=== PATIENT | male | born 1935 | race Caucasian/White ===

== ENCOUNTER 2018-02-27 19:09 | Inpatient (IN) | payer MEDICARE, OTHER ==
[~2018-02-27] VITALS: Ht 172.7 cm; Wt 57.4 kg
[~2018-02-27 19:09] MED LIST: ACET-2605 PO; ALLO100T56 PO; ASPI81TA31 PO; CALC-34 PO; DILT240C2 PO; FOLI1TAB16 PO; LUBI24CA5 PO; METO-357 PO; RIVA20TA PO; SAXA1TBM PO; SIMV20TA6 PO; TAMS-3 PO
--- NOTE | 2018-02-27 20:05 | NUR ---
PT IN BED. PT'S FAMILY MEMBERS AT BEDSIDE. PT IS AAOX4. PT PRESENTED TO ED WITH C/O ABDOMINAL PAIN. HOWEVER, UPON INITAL ASSESSMENT PT WAS TACHYCARDIC. WAS MADE AWARE.
[2018-02-27] MEDS ORDERED: MORPHINE SULFATE 2 MG/1 ML DISP.SYRIN IV ONE (20:15)
[2018-02-27] MEDS ORDERED: IV NORMAL SALINE 1000 ML BAG IV ONE (20:15)
[2018-02-27] MEDS ORDERED: ONDANSETRON 4 MG/2 ML VIAL IV ONE (20:15)
[2018-02-27] MEDS ORDERED: DILTIAZEM HCL 25 MG IV IV ONE ×2 (20:15→20:45)
[2018-02-27 20:34] LABS: BASOPHILS # (AUTO) 0.1 K/uL (0.0-8.0); BASOPHILS % (AUTO) 0.6 % (0.0-2.0); EOSINOPHILS % (AUTO) 0.2 % (0.0-7.0); HEMOGLOBIN 12.1 g/dL (12.5-16.3); LYMPHOCYTES # (AUTO) 0.5 K/uL (20.0-40.0); LYMPHOCYTES % (AUTO) 4.1 % (20.5-51.5); MEAN CORPUSCULAR HEMOGLOBIN 32.9 uug (23.8-33.4); MEAN CORPUSCULAR HGB CONC 34 g/dL (32.5-36.3); MEAN CORPUSCULAR VOLUME 97.9 fL (73.0-96.2); MONOCYTES # (AUTO) 0.4 K/uL (2.0-10.0); MONOCYTES % (AUTO) 3.5 % (0.0-11.0); NEUTROPHILS # (AUTO) 11.2 K/uL (1.8-8.9); NEUTROPHILS % (AUTO) 91.6 % (38.5-71.5); PLATELET COUNT (AUTO) 180 K/uL (152-348); RED BLOOD CELL COUNT(AUTO) 3.68 MIL/uL (4.06-5.63); WHITE BLOOD COUNT (AUTO) 12.3 K/uL (3.6-10.2)
[2018-02-27] MEDS ORDERED: ONDANSETRON 4 MG/2 ML VIAL ONE (20:40)
[2018-02-27] MEDS ORDERED: MORPHINE SULFATE 2 MG/1 ML DISP.SYRIN ONE (20:40)
[2018-02-27] MEDS ORDERED: DILTIAZEM HCL 25 MG IV ONE ×2 (20:41→20:52)
[2018-02-27 20:49] LABS: CARBON DIOXIDE 27 mmol/L (21-32); CHLORIDE 101 mmol/L (98-107); GLUCOSE 100 mg/dL (74-106); POTASSIUM 4.4 mmol/L (3.5-5.1); UREA NITROGEN, BLOOD 17 mg/dL (7-18)
[2018-02-27 21:01] LABS: ALANINE AMINOTRANSFERASE 54 U/L (16-63); ALKALINE PHOSPHATASE 649 U/L (50-136); ASPARTATE AMINOTRANSFERASE 80 U/L (15-37); BILIRUBIN,DIRECT 2.2 mg/dL (0.0-0.2); BILIRUBIN,TOTAL 2.8 mg/dL (0.2-1.0); LIPASE 360 U/L (73-393); TOTAL PROTEIN, SERUM 6.9 g/dL (6.4-8.2)
[2018-02-27 21:07] LABS: *BILIRUBIN,URIN NEGATIVE (NEGATIVE); *BLOOD, URINE NEGATIVE (NEGATIVE); *COLOR,URINE YELLOW (YELLOW); *KETONES,URINE TRACE (NEGATIVE); *PROTEIN,URINE TRACE (NEGATIVE); LEUKOCYTE ESTERASE ,URINE NEGATIVE (NEGATIVE); NITRITE, URINE NEGATIVE (NEGATIVE); PH,URINE 5.5 (5.0-8.0); UGLUCOSE NEGATIVE (NEGATIVE)
[2018-02-27 21:08] LABS: *CLARITY,URINE CLEAR (CLEAR)
[2018-02-27 21:23] LABS: BACTERIA,URINE NONE SEEN /HPF (NONE SEEN); RBC,URINE 0-3 /HPF (0-3); SQUAMOUS EPITHELIAL CELL,UR NONE SEEN /HPF (NONE SEEN); WBC,URINE 0-3 /HPF (0-3)
[2018-02-27] MEDS ORDERED: ESCI10TA PO (21:33)
[2018-02-27] MEDS ORDERED: SOTA80TA PO (21:33)
[2018-02-27] MEDS ORDERED: SAXA1TBM3 PO (21:33)
[2018-02-27] MEDS ORDERED: VALS160T2 PO (21:33)
--- NOTE | 2018-02-27 21:40 | NUR ---
PT IN BED RESTING QUIETLY. HR IS TRENDING DOWNWARD. NO SIGNS OF ACUTE DISTRESS WITNESSED AT THIS TIME.
[2018-02-27] MEDS ORDERED: IV NORMAL SALINE 500 ML BAG IV ONE (22:00)
[2018-02-27] MEDS ORDERED: DILTIAZEM HCL IV 125 MG in IV DEXTROSE 5% 100 ML IV PRN (22:00)
[2018-02-27] MEDS ORDERED: PIPERACILLIN SODIUM/TAZOBACTAM 3.375 G in IV DEXTROSE 5% 50 ML IV ONE (22:00)
[2018-02-27] MEDS ORDERED: NOREPINEPHRINE BITARTRATE 4 MG/4 ML VIAL IV ONE (22:23)
--- NOTE | 2018-02-27 22:25 | NUR ---
PT BEGINS TO TREND HYPOTENSIVELY. MADE AWARE.
[2018-02-27] MEDS ORDERED: NOREPINEPHRINE BITARTRATE 8 MG in IV DEXTROSE 5% 250 ML IV ONE (22:30)
[2018-02-27] MEDS ORDERED: DILTIAZEM HCL 50 MG IV ONE (23:14)
--- NOTE | 2018-02-27 23:30 | NUR ---
REPORT GIVEN TO CCU NURSESHAHNAZ
--- NOTE | 2018-02-27 23:40 | NUR ---
PT'S SON LEAVES BEDSIDE AND LEAVES CONTACT PHONE NUMBER
[2018-02-27] MEDS ORDERED: PIPERACILLIN/TAZOBACTAM/D5W 50 ML IV ONE (23:41)
[2018-02-28] VITALS (88 sets, daily range): BP systolic 83–128; BP diastolic 49–80
--- NOTE | 2018-02-28 00:20 | NUR ---
Pt. admitted to CCU, under care of Dr. QUAN Belongs List completed
--- NOTE | 2018-02-28 00:30 | NUR ---
Admitted an 82 y.o. male patient from ER via [facility] with DX: abdominal pain, Afib with RVR and Choledocholithiasis. Patient AAO but speaks Farsi only. Able to communicate with patient via gestures. To CCU3. On continuous Levophed and Cardizem drips. RAC IV accidentally out during transport. Assessment completed.
--- NOTE | 2018-02-28 00:45 | NUR ---
Call placed to Dr. Junior's exchange re: patient's admission.
[2018-02-28] MEDS ORDERED: ACETAMINOPHEN ES 500 MG TABLET PO SCH (01:00)
[2018-02-28] MEDS ORDERED: MAGNESIUM HYDROXIDE 30 ML LIQUID UDC PO PRN (01:15)
[2018-02-28] MEDS ORDERED: ONDANSETRON 4 MG/2 ML VIAL IV PRN (01:15)
[2018-02-28] MEDS ORDERED: ACETAMINOPHEN 325 MG TABLET PO PRN (01:15)
[2018-02-28] MEDS ORDERED: DEXTROSE 50% 50 ML DISP.SYRIN IV PRN (01:15)
[2018-02-28] MEDS ORDERED: ZOLPIDEM 5 MG TABLET PO PRN (01:15)
[2018-02-28] MEDS ORDERED: Z GUARD REMEDY PASTE 57 GM TUBE TOP PRN (01:15)
--- NOTE | 2018-02-28 01:15 | NUR ---
Spoke to Dr. Junior; putting in orders in [facility]. Patient sleeping. NAD noted.
[2018-02-28] MEDS ORDERED: AMIODARONE HCL IV 900 MG in IV DEXTROSE 5% 482 ML IV PRN (01:30)
[2018-02-28] MEDS ORDERED: NOREPINEPHRINE BITARTRATE 8 MG in IV DEXTROSE 5% 500 ML IV PRN ×2 (01:30→02:15)
--- NOTE | 2018-02-28 01:30 | NUR ---
Spoke to Dr. Junior again. Orders of Cardizem and Amiodarone drips clarified with him. Informed of patient's HR. Order to discontinue both drips received.
--- NOTE | 2018-02-28 01:40 | NUR ---
2nd IV access inserted to LFA; main IVF started. Patient cooperative.
[2018-02-28] MEDS: IV D5 1/2 NS 1000 ML 1,000 ML IV PRN ×2 (01:43→16:39)
[2018-02-28] MEDS ORDERED: PIPERACILLIN SODIUM/TAZO 3.375 GM VIAL ONE (04:54)
[2018-02-28] MEDS: PIPERACILLIN/TAZOBACTAM/D5W 50 ML IV SCH ×4 (05:28→23:58)
[2018-02-28 05:31] LABS: BASOPHILS % (AUTO) 0.1 % (0.0-2.0); EOSINOPHILS % (AUTO) 0.1 % (0.0-7.0); HEMATOCRIT 30.5 % (36.7-47.1); HEMOGLOBIN 10.5 g/dL (12.5-16.3); LYMPHOCYTES # (AUTO) 1.6 K/uL (20.0-40.0); LYMPHOCYTES % (AUTO) 9.4 % (20.5-51.5); MEAN CORPUSCULAR HEMOGLOBIN 34.3 uug (23.8-33.4); MEAN CORPUSCULAR HGB CONC 34 g/dL (32.5-36.3); MEAN CORPUSCULAR VOLUME 99.8 fL (73.0-96.2); MONOCYTES # (AUTO) 0.8 K/uL (2.0-10.0); MONOCYTES % (AUTO) 4.9 % (0.0-11.0); NEUTROPHILS # (AUTO) 14.3 K/uL (1.8-8.9); NEUTROPHILS % (AUTO) 85.5 % (38.5-71.5); PLATELET COUNT (AUTO) 182 K/uL (152-348); RED BLOOD CELL COUNT(AUTO) 3.05 MIL/uL (4.06-5.63); WHITE BLOOD COUNT (AUTO) 16.8 K/uL (3.6-10.2)
[2018-02-28 05:35] LABS: CARBON DIOXIDE 28 mmol/L (21-32); CHLORIDE 103 mmol/L (98-107); GLUCOSE 176 mg/dL (74-106); MAGNESIUM 1.4 mg/dL (1.8-2.4); PHOSPHOROUS 3.8 mg/dL (2.5-4.9); POTASSIUM 4.7 mmol/L (3.5-5.1); UREA NITROGEN, BLOOD 14 mg/dL (7-18)
--- NOTE | 2018-02-28 07:07 | NUR ---
[facility] DR[facility].
[2018-02-28] MEDS: BLOOD SUGAR DIAGNOSTIC 1 EACH STRIP VI SCH ×4 (07:26→21:04)
--- NOTE | 2018-02-28 07:26 | NUR ---
Remains on Levophed drip at 4 mcg/min. BPs monitored closely. Eupneic.; sat above 94% on 2 L NC.
[2018-02-28] MEDS: FOLIC ACID 1 MG TABLET PO SCH (08:16)
[2018-02-28] MEDS: ESCITALOPRAM OXALATE 10 MG TABLET PO SCH (08:16)
[2018-02-28] MEDS: TAMSULOSIN HCL 0.4 MG CAP.SR.24H PO SCH (08:16)
[2018-02-28] MEDS ORDERED: SOTALOL HCL 80 MG TABLET PO SCH (09:00)
[2018-02-28] MEDS ORDERED: ASPIRIN 81 MG TAB.CHEW PO SCH (09:00)
[2018-02-28] MEDS ORDERED: METOPROLOL SUCCINATE XL 50 MG TAB.SR.24H PO SCH (09:00)
[2018-02-28] MEDS ORDERED: VALSARTAN 160 MG TABLET PO SCH (09:00)
--- NOTE | 2018-02-28 09:04 | NUR ---
DOCTOR GRIFFIN IN THE UNIT. CLARIFY ORDER FROM ER PHYSICIAN TO DO MRCP WHICH IS SCHEDULED AT 1PM AT [place]. DOCTOR GRIFFIN RECOMMENDS FOR GI CONSULT FIRST PRIOR PROCEEDING FOR MRCP.
--- NOTE | 2018-02-28 09:08 | NUR ---
CALLED MELINA FROM MRI TO HOLD MRCP FOR NOW.
[2018-02-28] MEDS: INSULIN REGULAR, HUMAN 300 UNIT/3 ML VIAL SQ PRN ×2 (09:57→21:06)
--- NOTE | 2018-02-28 10:52 | NUR ---
SURGEON DOCTOR REDDER TO SEE PATIENT AT THIS TIME. PATIENT NOT FOR SURGERY.
[2018-02-28] MEDS ORDERED: MAGNESIUM SULFATE/D5W 100 ML IV SCH (12:00)
--- NOTE | 2018-02-28 13:00 | NUR ---
SON CAME TO VISIT PATIENT. INFORMED HIM WE ARE WAITING FOR GI CONSULT TO COME SEE PATIENT
[2018-02-28] MEDS: HYDROCODONE/APAP 5-325MG TABLET PO PRN (15:19)
--- NOTE | 2018-02-28 15:22 | NUR ---
PATIENT COMPLAINING OF ABDOMINAL PAIN. GIVEN NORCO
--- NOTE | 2018-02-28 16:31 | NUR ---
FOLLOWED UP WITH GI CONSULT DR. CORDON. AWAITING FOR CALL BACK. CALLED AND LEFT A MESSAGE WITH EXCHANGE.
[2018-02-28] MEDS ORDERED: RIVAROXABAN 10 MG TABLET PO ONE (18:00)
--- NOTE | 2018-02-28 18:28 | NUR ---
GI DOCTOR IN THE UNIT TO SEE PATIENT.
--- NOTE | 2018-02-28 18:38 | NUR ---
PATIENT'S IN THE UNIT, INFORMED HER THAT PHARMACY NEEDS MEDICATION COMBINATION PILL FOR HIS BLOOD SUGAR. WE DO NOT CARRY THIS MEDICATION AND NEXT TIME SHE COMES IN SHE STATES SHE WILL BRING IN.
--- NOTE | 2018-02-28 18:43 | NUR ---
DR HORN SPOKE TO PATIENT AND FAMILY EXTENSIVELY REGARDING CONDITION AND PLAN.
--- NOTE | 2018-02-28 18:56 | NUR ---
PLAN FOR ERCP TOMORROW HE WILL SCHEDULE. NPO AFTER MIDNIGHT. PATIENT PREFERENCE [facility] FOR [employer].
--- NOTE | 2018-02-28 19:30 | NUR ---
Report received. Patient AA, with language barrier. Speaks and understands Farsi only but managed to communicate with patient with very few words of Albanian. NAD noted. For ERCP tomorrow by Dr. Sims. Assessment done. On continuous Levophed drip at 1 mcg/min for BP support.
--- NOTE | 2018-02-28 20:00 | NUR ---
Family visiting. Lois lee Will monitor BPs closely.
--- NOTE | 2018-02-28 20:30 | NUR ---
Voiding per urinal. PM care rendered. Patient cooperative.
--- NOTE | 2018-02-28 20:40 | NUR ---
Dr. Sims called; ERCP for tomorrow is cancelled as per MD. According to him patient had a dose of Xarelto this pm and he is not available Tuesday. Dr. Alejandra will be covering for 10 days. Will notify PMD and family. Call placed to Dr. Junior's exchange. Spoke to Dr. Kemp; made aware of ERCP being cancelled. Call placed to patient's son Rudy; he will be here shortly.
[2018-02-28] MEDS ORDERED: PANTOPRAZOLE SODIUM 40 MG VIAL IV SCH (21:00)
--- NOTE | 2018-02-28 21:30 | NUR ---
Patient's son Rudy here; updated of condition and ERCP cancelled. Patient informed by son.
[2018-03-01] VITALS (23 sets, daily range): BP systolic 102–150; BP diastolic 51–100
--- NOTE | 2018-03-01 | NUR ---
O2 dc'd per patient's request. Sat 93% on room air. Will monitor.
--- NOTE | 2018-03-01 01:10 | NUR ---
Voiding 100-120 ml at a time. BPs stable; off Levophed drip since 1999.
--- NOTE | 2018-03-01 04:00 | NUR ---
O2 sat 88-89 on room air. O2 2 L NC resumed. Saturations improved.
--- NOTE | 2018-03-01 04:10 | NUR ---
HR trending higher when patient is voiding. Denies pain. Continues to void Q1-2H about 100-120 ml of gris urine. Patient has history of BPH.
[2018-03-01 05:11] LABS: BASOPHILS % (AUTO) 0.3 % (0.0-2.0); EOSINOPHILS # (AUTO) 0.1 K/uL (0.0-0.7); EOSINOPHILS % (AUTO) 1.5 % (0.0-7.0); HEMATOCRIT 31.1 % (36.7-47.1); HEMOGLOBIN 10.8 g/dL (12.5-16.3); LYMPHOCYTES # (AUTO) 0.7 K/uL (20.0-40.0); LYMPHOCYTES % (AUTO) 11.4 % (20.5-51.5); MEAN CORPUSCULAR HEMOGLOBIN 34.1 uug (23.8-33.4); MEAN CORPUSCULAR HGB CONC 35 g/dL (32.5-36.3); MEAN CORPUSCULAR VOLUME 98.6 fL (73.0-96.2); MONOCYTES # (AUTO) 0.4 K/uL (2.0-10.0); MONOCYTES % (AUTO) 5.5 % (0.0-11.0); NEUTROPHILS # (AUTO) 5.4 K/uL (1.8-8.9); NEUTROPHILS % (AUTO) 81.3 % (38.5-71.5); PLATELET COUNT (AUTO) 148 K/uL (152-348); RED BLOOD CELL COUNT(AUTO) 3.15 MIL/uL (4.06-5.63); WHITE BLOOD COUNT (AUTO) 6.6 K/uL (3.6-10.2)
[2018-03-01 05:32] LABS: CARBON DIOXIDE 32 mmol/L (21-32); CHLORIDE 106 mmol/L (98-107); CHOLESTEROL 89 mg/dL (<200); CREATININE 1.1 mg/dL (0.6-1.3); GLUCOSE 116 mg/dL (74-106); HDL CHOLESTEROL 30 mg/dL (40-60); MAGNESIUM 1.8 mg/dL (1.8-2.4); PHOSPHOROUS 3.5 mg/dL (2.5-4.9); POTASSIUM 4.4 mmol/L (3.5-5.1); TRIGLYCERIDES 25 MG/DL (30-150); UREA NITROGEN, BLOOD 11 mg/dL (7-18)
[2018-03-01] MEDS: PIPERACILLIN/TAZOBACTAM/D5W 50 ML IV SCH ×4 (05:33→23:41)
[2018-03-01] MEDS: IV D5 1/2 NS 1000 ML 1,000 ML IV PRN ×2 (05:33→17:17)
--- NOTE | 2018-03-01 06:20 | NUR ---
BP stable. Am care done. Patient tolerated care fairly well.
[2018-03-01] MEDS: BLOOD SUGAR DIAGNOSTIC 1 EACH STRIP VI SCH ×4 (07:02→21:02)
--- NOTE | 2018-03-01 07:39 | NUR ---
Received an 82 y/o male Patient as a case of abdominal pain, with language barrier. Speaks and understands Farsi,understands few Cook Islander. connected to ECG monitor showing SR. has 2 peripheral lines G20 on LT ac, LT forearm. RECEIVING IVF D5 1/2 NS @ RATE 75ML/HR. URINATING FREELY
[2018-03-01] MEDS ORDERED: ACETAMINOPHEN ES 500 MG TABLET PO SCH (08:00)
[2018-03-01] MEDS: FOLIC ACID 1 MG TABLET PO SCH (08:38)
[2018-03-01] MEDS: TAMSULOSIN HCL 0.4 MG CAP.SR.24H PO SCH (08:38)
[2018-03-01] MEDS: ESCITALOPRAM OXALATE 10 MG TABLET PO SCH (08:38)
[2018-03-01] MEDS ORDERED: ACETAMINOPHEN ES 500 MG TABLET PO PRN (14:00)
[2018-03-01] MEDS: HYDROCODONE/APAP 5-325MG TABLET PO PRN ×2 (16:07→21:17)
[2018-03-01] MEDS: INSULIN REGULAR, HUMAN 300 UNIT/3 ML VIAL SQ PRN (16:16)
--- NOTE | 2018-03-01 19:30 | NUR ---
Report received. Patient AAO, speaks and understands Farsi only. NAD noted. Assessment done; refer to U flow sheet for complete data. Addendum: 03/02/18 at 0227 by SHAHNAZ BANKS RN Amended: Links added. Addendum: 03/02/18 at 0229 by SHAHNAZ BANKS RN Amended: Links added.
--- NOTE | 2018-03-01 20:00 | NUR ---
Voiding per urinal. PM care rendered. Patient cooperative. Remains in Afib, rate controlled. BPs stable. Addendum: 03/02/18 at 0229 by SHAHNAZ BANKS RN Amended: Links added.
[2018-03-01] MEDS: METOPROLOL TARTRATE 25 MG TABLET PO SCH (21:04)
[2018-03-02] VITALS (16 sets, daily range): BP systolic 132–158; BP diastolic 51–105
--- NOTE | 2018-03-02 01:00 | NUR ---
Son Rudy showed up and inquiring about the ERCP and mentioning about transfer to [facility]. Advised to talk to MD today and discuss his concerns.
[2018-03-02] MEDS: PIPERACILLIN/TAZOBACTAM/D5W 50 ML IV SCH ×4 (05:23→23:08)
--- NOTE | 2018-03-02 06:00 | NUR ---
Am care rendered. Patient cooperative. NAD noted. Continues to void Q1-2H 100-150 ml clear yellow urine.
[2018-03-02] MEDS: BLOOD SUGAR DIAGNOSTIC 1 EACH STRIP VI SCH ×4 (06:42→21:26)
[2018-03-02] MEDS: IV D5 1/2 NS 1000 ML 1,000 ML IV PRN (08:18)
--- NOTE | 2018-03-02 08:30 | NUR ---
At this time pt's son Mr. Grant in the unit and inquiring to have a meeting with attending physician Dr. Navarrete to arrange pt's transfer to another facility. manager general Anastasiya Palmer informed and Mr. Grant escorted to her office for and update of plan.
[2018-03-02] MEDS: TAMSULOSIN HCL 0.4 MG CAP.SR.24H PO SCH (08:47)
[2018-03-02] MEDS: ESCITALOPRAM OXALATE 10 MG TABLET PO SCH (08:47)
[2018-03-02] MEDS: FOLIC ACID 1 MG TABLET PO SCH (08:47)
--- NOTE | 2018-03-02 08:47 | NUR ---
At this time patient with a change in cardiac rhythm, before now on A-fib controlled now on Uncontrol atrial fibrillation with the rate ranging between 120-170's. A call to ice puller, awaiting call back. Addendum: 03/02/18 at 0908 by LIBAN EID RN Patient otherwise with sbp within desired limits.
[2018-03-02] MEDS: METOPROLOL TARTRATE 25 MG TABLET PO SCH ×2 (08:49→23:10)
[2018-03-02] MEDS: INSULIN REGULAR, HUMAN 300 UNIT/3 ML VIAL SQ PRN ×2 (12:02→17:21)
--- NOTE | 2018-03-02 14:10 | NUR ---
Attending physician Dr. Navarrete in the unit to see and examine patient. At this time as requested he was provided with Mr. Rudy Becker's phone number to call him and discuss the care plan. Addendum: 03/02/18 at 1651 by LIBAN EID RN also informed of pt's refusal to continue IV fluid. Orders received.
--- NOTE | 2018-03-02 19:53 | NUR ---
[address] temporary receptionist Dr. Piper called to be notified of persistent on/off uncontrolled A-fib no new orders received.
--- NOTE | 2018-03-02 20:00 | NUR ---
PT ALERT AWAKE AND ORIENTED IN NO ACUTE DISTRESS. FAMILY CONSULTANT SHOWING CONTROLLED A-FIB WITH HR 90-140s WHEN PT IS STANDING. DENIES ANY CHEST PAIN OR SOB. ABLE TO FOLLOW SIMPLE COMMANDS. URINAL AT BEDSIDE AND REMINDED PT TO REQUEST FOR ASSISTANCE WHEN NEEDED. WILL CONTINUE TO MONITOR. CALL LIGHT PLACED WITHIN REACH.
[2018-03-03] VITALS: BP 143/75
--- NOTE | 2018-03-03 01:00 | NUR ---
Pt asleep in no acute distress. Controlled a-fib and HR increases when pt uses urinal and up out of bed. No adverse reaction to previous zosyn IV therapy. No pain, dizziness, or sob at this time. Will continue to monitor.
[2018-03-03] MEDS: METOPROLOL TARTRATE 25 MG TABLET PO SCH ×4 (05:45→23:32)
[2018-03-03] MEDS: PIPERACILLIN/TAZOBACTAM/D5W 50 ML IV SCH ×4 (05:46→23:30)
--- NOTE | 2018-03-03 05:55 | NUR ---
Pt transferred to room 208 in stable condition. Report given to TRENTON Ac.
[2018-03-03 06:10] VITALS: BP 139/88
--- NOTE | 2018-03-03 06:18 | NUR ---
PT TRANSFERRED FROM CCU. PT SELF-AMBULATED TO BED. RECEIVED REPORT FROM CCU NURSE, TRENTON POWELL. PT STABLE AT THIS TIME. DENIES PAIN, SOB, C/P, N/V. PT IS CURRENTLY IN A-FIB HR 110 ON TELE MONITORING. PT ASYMPTOMATIC. PT HAS 20 G IV ACCESS IN L FOREARM. CURRENTLY INFUSING ZOSYN. WILL CONTINUE TO MONITOR.
[2018-03-03] MEDS: BLOOD SUGAR DIAGNOSTIC 1 EACH STRIP VI SCH ×4 (06:36→21:15)
--- NOTE | 2018-03-03 06:53 | NUR ---
ZOSYN INFUSION COMPLETED, WELL TOLERATED. PT IS RESTING IN BED. PT IN A-FIB ON TELE MONITORING. PT STILL DENIES PAIN, C/P, SOB, N/V.
[2018-03-03] MEDS: TAMSULOSIN HCL 0.4 MG CAP.SR.24H PO SCH (08:33)
[2018-03-03] MEDS: ESCITALOPRAM OXALATE 10 MG TABLET PO SCH (08:33)
[2018-03-03] MEDS: FOLIC ACID 1 MG TABLET PO SCH (08:33)
[2018-03-03 09:18] LABS: BASOPHILS % (AUTO) 0.5 % (0.0-2.0); EOSINOPHILS # (AUTO) 0.1 K/uL (0.0-0.7); EOSINOPHILS % (AUTO) 1.3 % (0.0-7.0); HEMATOCRIT 33.1 % (36.7-47.1); HEMOGLOBIN 11.4 g/dL (12.5-16.3); LYMPHOCYTES % (AUTO) 16.4 % (20.5-51.5); MEAN CORPUSCULAR HEMOGLOBIN 33.8 uug (23.8-33.4); MEAN CORPUSCULAR HGB CONC 35 g/dL (32.5-36.3); MEAN CORPUSCULAR VOLUME 97.8 fL (73.0-96.2); MONOCYTES # (AUTO) 0.4 K/uL (2.0-10.0); NEUTROPHILS # (AUTO) 4.4 K/uL (1.8-8.9); NEUTROPHILS % (AUTO) 75.8 % (38.5-71.5); PLATELET COUNT (AUTO) 188 K/uL (152-348); RED BLOOD CELL COUNT(AUTO) 3.39 MIL/uL (4.06-5.63); WHITE BLOOD COUNT (AUTO) 5.8 K/uL (3.6-10.2)
[2018-03-03 09:19] LABS: ALANINE AMINOTRANSFERASE 46 U/L (16-63); ALKALINE PHOSPHATASE 390 U/L (50-136); ASPARTATE AMINOTRANSFERASE 42 U/L (15-37); BILIRUBIN,TOTAL 2.5 mg/dL (0.2-1.0); CARBON DIOXIDE 30 mmol/L (21-32); CHLORIDE 104 mmol/L (98-107); GLUCOSE 144 mg/dL (74-106); MAGNESIUM 1.7 mg/dL (1.8-2.4); PHOSPHOROUS 3.7 mg/dL (2.5-4.9); POTASSIUM 3.6 mmol/L (3.5-5.1); TOTAL PROTEIN, SERUM 6.2 g/dL (6.4-8.2); UREA NITROGEN, BLOOD 5 mg/dL (7-18)
--- NOTE | 2018-03-03 10:00 | NUR ---
Instructed patient to use call light when assistance is needed to prevent falls, safety precaution observed. Family at bedside translated to patient. Patient verbalized understanding.
[2018-03-03 11:20] VITALS: BP 147/94
[2018-03-03] MEDS: INSULIN REGULAR, HUMAN 300 UNIT/3 ML VIAL SQ PRN ×2 (12:05→21:18)
[2018-03-03 15:20] VITALS: BP 138/84
--- NOTE | 2018-03-03 17:10 | NUR ---
Patient's blood sugar level result 70mg/dL. Patient is alert, awake, currently eating his meal. Will monitor.
[2018-03-03 19:26] VITALS: BP 145/75
--- NOTE | 2018-03-03 20:07 | NUR ---
Patient in bed, awake alert & oriented denies abdominal pain. Vital signs WNL. Needs attended kept call light within reach. Family in room.
--- NOTE | 2018-03-03 21:27 | NUR ---
Accu check showed 148 mg/dl, covered w/ 2 units regular insulin SQ. Snacks provided, patient tolerated.
[2018-03-04 03:33] VITALS: BP 141/91
[2018-03-04 05:55] LABS: BASOPHILS # (AUTO) 0.1 K/uL (0.0-8.0); BASOPHILS % (AUTO) 1.3 % (0.0-2.0); EOSINOPHILS # (AUTO) 0.1 K/uL (0.0-0.7); EOSINOPHILS % (AUTO) 2.9 % (0.0-7.0); HEMATOCRIT 34.5 % (36.7-47.1); LYMPHOCYTES # (AUTO) 1.1 K/uL (20.0-40.0); LYMPHOCYTES % (AUTO) 21.7 % (20.5-51.5); MEAN CORPUSCULAR HEMOGLOBIN 34.4 uug (23.8-33.4); MEAN CORPUSCULAR HGB CONC 35 g/dL (32.5-36.3); MEAN CORPUSCULAR VOLUME 98.9 fL (73.0-96.2); MONOCYTES # (AUTO) 0.4 K/uL (2.0-10.0); MONOCYTES % (AUTO) 7.3 % (0.0-11.0); NEUTROPHILS # (AUTO) 3.5 K/uL (1.8-8.9); NEUTROPHILS % (AUTO) 66.8 % (38.5-71.5); PLATELET COUNT (AUTO) 195 K/uL (152-348); RED BLOOD CELL COUNT(AUTO) 3.48 MIL/uL (4.06-5.63); WHITE BLOOD COUNT (AUTO) 5.2 K/uL (3.6-10.2)
[2018-03-04] MEDS: METOPROLOL TARTRATE 25 MG TABLET PO SCH ×3 (05:59→18:07)
[2018-03-04] MEDS: PIPERACILLIN/TAZOBACTAM/D5W 50 ML IV SCH ×3 (05:59→18:14)
[2018-03-04 06:12] LABS: ALANINE AMINOTRANSFERASE 48 U/L (16-63); ALKALINE PHOSPHATASE 408 U/L (50-136); ASPARTATE AMINOTRANSFERASE 40 U/L (15-37); BILIRUBIN,TOTAL 1.9 mg/dL (0.2-1.0); CARBON DIOXIDE 35 mmol/L (21-32); CHLORIDE 105 mmol/L (98-107); CREATININE 1.1 mg/dL (0.6-1.3); GLUCOSE 102 mg/dL (74-106); MAGNESIUM 1.6 mg/dL (1.8-2.4); PHOSPHOROUS 4.9 mg/dL (2.5-4.9); POTASSIUM 4.4 mmol/L (3.5-5.1); TOTAL PROTEIN, SERUM 6.6 g/dL (6.4-8.2); UREA NITROGEN, BLOOD 8 mg/dL (7-18)
[2018-03-04] MEDS: BLOOD SUGAR DIAGNOSTIC 1 EACH STRIP VI SCH ×3 (06:17→16:45)
--- NOTE | 2018-03-04 07:28 | NUR ---
No acute distress, assisted w/ all needs. Report given to Martha CHOWDHURY.
[2018-03-04] MEDS: FOLIC ACID 1 MG TABLET PO SCH (08:17)
[2018-03-04] MEDS: TAMSULOSIN HCL 0.4 MG CAP.SR.24H PO SCH (08:17)
[2018-03-04] MEDS: ESCITALOPRAM OXALATE 10 MG TABLET PO SCH (08:17)
[2018-03-04 11:37] VITALS: BP 137/88
[2018-03-04] MEDS: MAGNESIUM SULFATE/D5W 100 ML IV SCH ×2 (15:24→16:38)
[2018-03-04 15:43] VITALS: BP 140/81
[2018-03-04] MEDS: INSULIN REGULAR, HUMAN 300 UNIT/3 ML VIAL SQ PRN (16:54)
--- NOTE | 2018-03-04 17:51 | NUR ---
RECEIVED A CALL FROM TRENTON FARRELL [facility]. REPORT GIVEN. PER JAMI, TRANSFER WILL HAPPEN THIS EVENING, TRANSFER CENTER WILL CALL BACK TO [facility] FOR BED DETAILS. SON/FAMILY INFORMED.
[2018-03-04 18:07] VITALS: BP 119/62
--- NOTE | 2018-03-04 19:00 | NUR ---
REPORT GIVEN TO TRENTON SALES [facility]. ADMITTING HOSPITALIST. PATIENT WILL BE TRANSFERRED TO UNIT 4UT 4432 BED 1. TEL [phone]. FAMILY//SON INFORMED.
--- NOTE | 2018-03-04 19:15 | NUR ---
PATIENT LEFT THE UNIT VIA AMBULANCE. ACCOMPANIED BY SON/. BELONGING LIST DONE. DISCHARGE INSTRUCTIONS/TEACHINGS PROVIDED TO /SON, FAMILY VERBALIZED UNDERSTANDING. IV ON LFA 20G INTACT, FLUSHED, SALINE LOCKED. PATIENT IS ALERT, IN NO DISTRESS.
== END 2018-03-04 19:30 | disposition short-term general hospital (02) | DRG 871 ==
LOC: ER 19:21 → CCU 23:54 → TELE 03-03 05:50 → MED 03-03 17:57
PROVIDERS: ADMIT Internal Medicine; ATTEND Internal Medicine
DX: A41.9 Sepsis, unspecified organism (principal); N17.0 Acute kidney failure with tubular necrosis; K80.31 Calculus of bile duct with cholangitis, unspecified, with obstruction; K56.7 Ileus, unspecified; Z68.1 Body mass index [BMI] 19.9 or less, adult; Z86.718 Personal history of other venous thrombosis and embolism; Z79.01 Long term (current) use of anticoagulants; I48.2 Chronic atrial fibrillation; E78.5 Hyperlipidemia, unspecified; E11.22 Type 2 diabetes mellitus with diabetic chronic kidney disease; I12.9 Hypertensive chronic kidney disease with stage 1 through stage 4 chronic kidney disease, or unspecified chronic kidney disease; N18.3 Chronic kidney disease, stage 3 (moderate); Z79.84 Long term (current) use of oral hypoglycemic drugs; N40.0 Benign prostatic hyperplasia without lower urinary tract symptoms; R63.4 Abnormal weight loss; Z96.659 Presence of unspecified artificial knee joint; Z82.49 Family history of ischemic heart disease and other diseases of the circulatory system; Z79.899 Other long term (current) drug therapy; Z79.82 Long term (current) use of aspirin; E11.65 Type 2 diabetes mellitus with hyperglycemia; D64.9 Anemia, unspecified; I95.9 Hypotension, unspecified
CPT/HCPCS: 36415; 70030-TC; 71045; 83605; 83690; 83735; 84100; 84443; 85025; 85730; 87040; 87086; 93005; 93307; A4663; A9150; J1815; J2270; J2405; J2543; J3475; J3490; J7030; J7040; J7060